=== PATIENT | male | born 1960 | race African-American/Black ===

== ENCOUNTER 2020-02-02 08:14 | Inpatient (IN) ==
[2020-02-02] MEDS ORDERED: AZITHROMYCIN INJ 500 MG in SODIUM CHLORIDE 0.9% 250 ML IV STA (08:34)
[2020-02-02] MEDS ORDERED: SODIUM CHLORIDE 0.9% 500 ML IV STA (08:34)
[2020-02-02] MEDS ORDERED: ACETAMINOPHEN 500 MG TABLET PO STA (08:37)
[2020-02-02 09:21] LABS: Basophils % 0.2 % (0.0-0.8); Hematocrit 49.7 VOL% (42.0-52.0); Immature Granulocytes % 0.4 %; Immature Granulocytes Absolute 0.02 #; Lymphocytes # 1.4 10*3/uL (1.4-4.0); Lymphocytes % 26.8 % (21.2-54.2); Mean Corpuscular HGB Conc 32.2 GM/DL (32-36); Mean Corpuscular Volume 86.3 FL (87-102); Mean Platelet Volume 10.5 FL (9.6-12.0); Monocytes % 3.5 % (1.7-12.7); Neutrophils % 69.1 % (38.7-73.9); Platelet Count 218 T/CUMM (130-400); Red Blood Count 5.76 MC/CUMM (3.8-5.5); Red Cell Distribution Width 14.1 % (9.3-17.3); White Blood Count 5.2 T/CUMM (4-12)
[2020-02-02 09:34] LABS: PT Patient Result 10.9 SECS (9.8-11.9); Partial Thromboplastin Time 37.5 SECS (23.9-33.8)
[2020-02-02 09:42] LABS: Bilirubin,Total 0.5 MG/DL (0.2-1.0); Osmolality,Calculated 267.4 MOS/KG (273-304); Total Protein 7.5 G/DL (6.4-8.3)
[2020-02-02] MEDS ORDERED: DEXTROSE 50% 25 GM/50 ML VIAL IV PRN (11:06)
[2020-02-02] MEDS ORDERED: GLUCAGON 1 MG VIAL IM PRN (11:06)
[2020-02-02] MEDS ORDERED: ONDANSETRON 4 MG/2 ML VIAL IV PRN (11:06)
[2020-02-02] MEDS: DEXAMETHASONE 4 MG TABLET PO SCH (16:51)
[2020-02-02] MEDS: ACETAMINOPHEN 325 MG TABLET PO PRN ×2 (16:52→21:26)
[2020-02-02] MEDS ORDERED: REMDESIVIR 200 MG in SODIUM CHLORIDE 0.9% 210 ML IV ONE (17:00)
[2020-02-02 18:46] LABS: Apearance,Urine CLEAR (Clear); Bilirubin,Urine Negative (Negative); Blood, Urine Negative (Negative); Glucose,Urine (UA) Negative (Negative); Ketones,Urine Negative (Negative); Mucus,Urine Occasional /LPF (Occasional); Nitrite,Urine Negative (Negative); Protein,Urine 100 MG/DL; Squamous Epithelial Cell,Urine Occasional /HPF (0-10); Urine Color Yellow (Yellow)
[2020-02-02] MEDS: ENOXAPARIN 40 MG/0.4 ML SYRINGE SUBCUT SCH (21:25)
[2020-02-03] MEDS: ALBUTEROL INHALER 18 GM INH SCH ×4 (01:33→20:03)
[2020-02-03 06:29] LABS: Hematocrit 46.9 VOL% (42.0-52.0); Hemoglobin 14.9 GM/DL (14.0-18.0); Immature Granulocytes % 0.3 %; Immature Granulocytes Absolute 0.01 #; Lymphocytes # 1.3 10*3/uL (1.4-4.0); Lymphocytes % 33.2 % (21.2-54.2); Mean Corpuscular HGB Conc 31.8 GM/DL (32-36); Mean Platelet Volume 10.4 FL (9.6-12.0); Monocytes % 4.7 % (1.7-12.7); Neutrophils % 61.8 % (38.7-73.9); Platelet Count 222 T/CUMM (130-400); Red Blood Count 5.39 MC/CUMM (3.8-5.5); Red Cell Distribution Width 14.5 % (9.3-17.3); White Blood Count 3.9 T/CUMM (4-12)
[2020-02-03 06:49] LABS: Hypochromasia 1+
[2020-02-03 06:50] LABS: Microcytosis Slight; Platelet Estimate Normal
[2020-02-03 07:16] LABS: Albumin 2.5 G/DL (3.4-5.0); Bilirubin,Total 1.2 MG/DL (0.2-1.0); Calcium 8.3 MG/DL (8.5-10.1); Osmolality,Calculated 274.1 MOS/KG (273-304); Risk Ratio 4.74; Thyroid Stimulating Hormone 0.54 uIU/ml (0.358-3.74); Total Protein 7.3 G/DL (6.4-8.3); VLDL CHOLESTEROL 23.8 MG/DL
[2020-02-03 07:26] LABS: Ferritin 4585.9 ng/ml (26-388)
[2020-02-03] MEDS: DEXAMETHASONE 4 MG TABLET PO SCH (08:54)
[2020-02-03] MEDS: PANTOPRAZOLE 40 MG TABLET PO SCH (08:54)
[2020-02-03] MEDS: ATORVASTATIN 40 MG TABLET PO SCH (08:54)
[2020-02-03] MEDS: lisinopriL 10 MG TABLET PO SCH (08:54)
[2020-02-03] MEDS: ZINC GLUCONATE 50 MG TABLET PO SCH (08:54)
[2020-02-03] MEDS: MONTELUKAST 10 MG TABLET PO SCH (08:54)
[2020-02-03] MEDS: ENOXAPARIN 40 MG/0.4 ML SYRINGE SUBCUT SCH ×2 (08:56→23:14)
[2020-02-03] MEDS ORDERED: GLUCAGON 1 MG VIAL IM PRN (11:44)
[2020-02-03] MEDS ORDERED: DEXTROSE 50% 25 GM/50 ML VIAL IV PRN (11:44)
[2020-02-03] MEDS: INSULIN LISPRO 100 UNIT/ML SUBCUT SCH ×2 (16:05→22:33)
[2020-02-03] MEDS: REMDESIVIR 100 MG in SODIUM CHLORIDE 0.9% 230 ML IV SCH (23:15)
[2020-02-04] MEDS: ALBUTEROL INHALER 18 GM INH SCH ×4 (00:16→18:14)
[2020-02-04 06:15] LABS: Hematocrit 44.9 VOL% (42.0-52.0); Hemoglobin 14.3 GM/DL (14.0-18.0); Immature Granulocytes % 0.3 %; Immature Granulocytes Absolute 0.02 #; Lymphocytes # 1.5 10*3/uL (1.4-4.0); Lymphocytes % 25.2 % (21.2-54.2); Mean Corpuscular HGB Conc 31.8 GM/DL (32-36); Mean Corpuscular Volume 86.7 FL (87-102); Mean Platelet Volume 10.1 FL (9.6-12.0); Monocytes % 7.4 % (1.7-12.7); Neutrophils % 67.1 % (38.7-73.9); Platelet Count 245 T/CUMM (130-400); Red Blood Count 5.18 MC/CUMM (3.8-5.5); Red Cell Distribution Width 14.3 % (9.3-17.3); White Blood Count 6.1 T/CUMM (4-12)
[2020-02-04 06:38] LABS: Band Neutrophils 2 % (0-10); Lymphocytes 20 % (20-55); Segmented Neutrophils 68 % (50-85); Total Cells Counted 100
[2020-02-04 06:39] LABS: Albumin 2.6 G/DL (3.4-5.0); Atypical Lymphocytes Few; Bilirubin,Total 0.7 MG/DL (0.2-1.0); Calcium 8.3 MG/DL (8.5-10.1); Hypochromasia 1+; Microcytosis Slight; Total Protein 7.3 G/DL (6.4-8.3)
[2020-02-04] MEDS: INSULIN LISPRO 100 UNIT/ML SUBCUT SCH ×4 (07:35→22:09)
[2020-02-04 08:20] LABS: Ferritin 4105.6 ng/ml (26-388)
[2020-02-04] MEDS: ZINC GLUCONATE 50 MG TABLET PO SCH (08:21)
[2020-02-04] MEDS: MONTELUKAST 10 MG TABLET PO SCH (08:21)
[2020-02-04] MEDS: lisinopriL 10 MG TABLET PO SCH (08:21)
[2020-02-04] MEDS: ATORVASTATIN 40 MG TABLET PO SCH (08:21)
[2020-02-04] MEDS: DEXAMETHASONE 4 MG TABLET PO SCH (08:22)
[2020-02-04] MEDS: ENOXAPARIN 40 MG/0.4 ML SYRINGE SUBCUT SCH ×2 (08:22→22:09)
[2020-02-04] MEDS: PANTOPRAZOLE 40 MG TABLET PO SCH (08:22)
[2020-02-04] MEDS: REMDESIVIR 100 MG in SODIUM CHLORIDE 0.9% 230 ML IV SCH (22:09)
[2020-02-05] MEDS: ALBUTEROL INHALER 18 GM INH SCH ×4 (01:10→18:18)
[2020-02-05 07:13] LABS: Albumin 2.5 G/DL (3.4-5.0); Bilirubin,Total 0.6 MG/DL (0.2-1.0); Calcium 8.5 MG/DL (8.5-10.1); Osmolality,Calculated 280.5 MOS/KG (273-304); Total Protein 7.1 G/DL (6.4-8.3)
[2020-02-05 07:43] LABS: Basophils % 0.1 % (0.0-0.8); Hematocrit 45.9 VOL% (42.0-52.0); Hemoglobin 14.5 GM/DL (14.0-18.0); Immature Granulocytes % 0.4 %; Immature Granulocytes Absolute 0.04 #; Lymphocytes # 2.4 10*3/uL (1.4-4.0); Lymphocytes % 25.3 % (21.2-54.2); Mean Corpuscular HGB Conc 31.6 GM/DL (32-36); Mean Corpuscular Volume 87.3 FL (87-102); Mean Platelet Volume 10.3 FL (9.6-12.0); Monocytes % 7.6 % (1.7-12.7); Neutrophils % 66.6 % (38.7-73.9); Platelet Count 302 T/CUMM (130-400); Red Blood Count 5.26 MC/CUMM (3.8-5.5); Red Cell Distribution Width 14.4 % (9.3-17.3); White Blood Count 9.6 T/CUMM (4-12)
[2020-02-05] MEDS: INSULIN LISPRO 100 UNIT/ML SUBCUT SCH ×4 (07:45→20:58)
[2020-02-05 08:18] LABS: Band Neutrophils 2 % (0-10); Lymphocytes 19 % (20-55); Segmented Neutrophils 74 % (50-85); Total Cells Counted 100
[2020-02-05 08:19] LABS: Hypochromasia 1+
[2020-02-05 08:20] LABS: Microcytosis 1+; Platelet Estimate Normal
[2020-02-05] MEDS: ENOXAPARIN 40 MG/0.4 ML SYRINGE SUBCUT SCH ×2 (09:31→20:57)
[2020-02-05] MEDS: MONTELUKAST 10 MG TABLET PO SCH (09:31)
[2020-02-05] MEDS: ATORVASTATIN 40 MG TABLET PO SCH (09:31)
[2020-02-05] MEDS: PANTOPRAZOLE 40 MG TABLET PO SCH (09:31)
[2020-02-05] MEDS: DEXAMETHASONE 4 MG TABLET PO SCH (09:31)
[2020-02-05] MEDS: lisinopriL 10 MG TABLET PO SCH (09:31)
[2020-02-05] MEDS: ZINC GLUCONATE 50 MG TABLET PO SCH (09:31)
[2020-02-05] MEDS: REMDESIVIR 100 MG in SODIUM CHLORIDE 0.9% 230 ML IV SCH (20:57)
[2020-02-06] MEDS: ALBUTEROL INHALER 18 GM INH SCH ×4 (01:30→18:03)
[2020-02-06 05:55] LABS: Basophils % 0.1 % (0.0-0.8); Eosinophils % 0.1 % (0.00-10.9); Hemoglobin 15.1 GM/DL (14.0-18.0); Immature Granulocytes % 0.9 %; Immature Granulocytes Absolute 0.09 #; Lymphocytes # 2.7 10*3/uL (1.4-4.0); Lymphocytes % 25.1 % (21.2-54.2); Mean Corpuscular HGB Conc 32.1 GM/DL (32-36); Mean Corpuscular Volume 86.4 FL (87-102); Mean Platelet Volume 10.1 FL (9.6-12.0); Monocytes % 5.7 % (1.7-12.7); Neutrophils % 68.1 % (38.7-73.9); Platelet Count 355 T/CUMM (130-400); Red Blood Count 5.44 MC/CUMM (3.8-5.5); Red Cell Distribution Width 14.1 % (9.3-17.3); White Blood Count 10.5 T/CUMM (4-12)
[2020-02-06 06:27] LABS: Calcium 8.4 MG/DL (8.5-10.1); Osmolality,Calculated 278.7 MOS/KG (273-304)
[2020-02-06 06:37] LABS: Atypical Lymphocytes Few; Lymphocytes 26 % (20-55); Segmented Neutrophils 66 % (50-85); Total Cells Counted 100
[2020-02-06 06:38] LABS: Hypochromasia 1+; Microcytosis 1+; Platelet Estimate Normal
[2020-02-06] MEDS: DEXAMETHASONE 4 MG TABLET PO SCH (09:26)
[2020-02-06] MEDS: MONTELUKAST 10 MG TABLET PO SCH (09:27)
[2020-02-06] MEDS: lisinopriL 10 MG TABLET PO SCH (09:27)
[2020-02-06] MEDS: INSULIN LISPRO 100 UNIT/ML SUBCUT SCH ×4 (09:27→21:14)
[2020-02-06] MEDS: ATORVASTATIN 40 MG TABLET PO SCH (09:27)
[2020-02-06] MEDS: ZINC GLUCONATE 50 MG TABLET PO SCH (09:27)
[2020-02-06] MEDS: PANTOPRAZOLE 40 MG TABLET PO SCH (09:27)
[2020-02-06] MEDS: ENOXAPARIN 40 MG/0.4 ML SYRINGE SUBCUT SCH ×2 (09:27→21:13)
[2020-02-06] MEDS: REMDESIVIR 100 MG in SODIUM CHLORIDE 0.9% 230 ML IV SCH (21:14)
[2020-02-07] MEDS: ALBUTEROL INHALER 18 GM INH SCH ×4 (00:54→18:32)
[2020-02-07 05:21] LABS: Basophils % 0.2 % (0.0-0.8); Eosinophils % 0.2 % (0.00-10.9); Hematocrit 47.8 VOL% (42.0-52.0); Hemoglobin 15.6 GM/DL (14.0-18.0); Immature Granulocytes % 1.2 %; Immature Granulocytes Absolute 0.17 #; Lymphocytes # 3.1 10*3/uL (1.4-4.0); Lymphocytes % 22.5 % (21.2-54.2); Mean Corpuscular HGB Conc 32.6 GM/DL (32-36); Mean Corpuscular Volume 85.5 FL (87-102); Mean Platelet Volume 9.9 FL (9.6-12.0); Monocytes % 4.3 % (1.7-12.7); Neutrophils % 71.6 % (38.7-73.9); Platelet Count 361 T/CUMM (130-400); Red Blood Count 5.59 MC/CUMM (3.8-5.5); Red Cell Distribution Width 13.9 % (9.3-17.3); White Blood Count 13.7 T/CUMM (4-12)
[2020-02-07 05:34] LABS: Calcium 8.2 MG/DL (8.5-10.1); Osmolality,Calculated 273.8 MOS/KG (273-304)
[2020-02-07 05:35] LABS: Ferritin 1702.6 ng/ml (26-388)
[2020-02-07 06:09] LABS: Anisocytosis 1+; Lymphocytes 23 % (20-55); Platelet Estimate Normal; Segmented Neutrophils 72 % (50-85); Total Cells Counted 100
[2020-02-07] MEDS: INSULIN LISPRO 100 UNIT/ML SUBCUT SCH ×4 (09:26→20:08)
[2020-02-07] MEDS: DEXAMETHASONE 4 MG TABLET PO SCH (09:27)
[2020-02-07] MEDS: ENOXAPARIN 40 MG/0.4 ML SYRINGE SUBCUT SCH ×2 (09:27→20:08)
[2020-02-07] MEDS: PANTOPRAZOLE 40 MG TABLET PO SCH (09:28)
[2020-02-07] MEDS: ZINC GLUCONATE 50 MG TABLET PO SCH (09:28)
[2020-02-07] MEDS: ATORVASTATIN 40 MG TABLET PO SCH (09:28)
[2020-02-07] MEDS: lisinopriL 10 MG TABLET PO SCH (09:28)
[2020-02-07] MEDS: MONTELUKAST 10 MG TABLET PO SCH (09:28)
[2020-02-07] MEDS: ACETAMINOPHEN 325 MG TABLET PO PRN (20:09)
[2020-02-08] MEDS: ALBUTEROL INHALER 18 GM INH SCH ×4 (00:33→18:03)
[2020-02-08 05:45] LABS: Basophils % 0.2 % (0.0-0.8); Eosinophils # 0.1 10*3/uL (0.0-0.87); Eosinophils % 0.4 % (0.00-10.9); Hematocrit 51.3 VOL% (42.0-52.0); Hemoglobin 16.4 GM/DL (14.0-18.0); Immature Granulocytes % 1.5 %; Immature Granulocytes Absolute 0.21 #; Lymphocytes # 2.2 10*3/uL (1.4-4.0); Lymphocytes % 15.9 % (21.2-54.2); Mean Corpuscular Volume 86.9 FL (87-102); Mean Platelet Volume 9.7 FL (9.6-12.0); Monocytes % 4.6 % (1.7-12.7); Neutrophils % 77.4 % (38.7-73.9); Platelet Count 406 T/CUMM (130-400); Red Cell Distribution Width 13.9 % (9.3-17.3); White Blood Count 13.6 T/CUMM (4-12)
[2020-02-08 06:00] LABS: Calcium 8.8 MG/DL (8.5-10.1); Osmolality,Calculated 271.1 MOS/KG (273-304)
[2020-02-08 06:06] LABS: Ferritin 1547.2 ng/ml (26-388)
[2020-02-08] MEDS: INSULIN LISPRO 100 UNIT/ML SUBCUT SCH ×4 (08:29→20:57)
[2020-02-08] MEDS: DEXAMETHASONE 4 MG TABLET PO SCH (08:30)
[2020-02-08] MEDS: ATORVASTATIN 40 MG TABLET PO SCH (08:31)
[2020-02-08] MEDS: MONTELUKAST 10 MG TABLET PO SCH (08:31)
[2020-02-08] MEDS: ZINC GLUCONATE 50 MG TABLET PO SCH (08:31)
[2020-02-08] MEDS: PANTOPRAZOLE 40 MG TABLET PO SCH (08:31)
[2020-02-08] MEDS: lisinopriL 10 MG TABLET PO SCH (08:31)
[2020-02-08] MEDS: ENOXAPARIN 40 MG/0.4 ML SYRINGE SUBCUT SCH ×2 (08:32→20:56)
[2020-02-08] MEDS: NEOMYCIN/POLYMYXIN/BACITRACIN OINT 0.9 GM PACK TOP PRN (13:38)
[2020-02-09] MEDS: ALBUTEROL INHALER 18 GM INH SCH ×4 (01:10→21:45)
[2020-02-09 06:12] LABS: Basophils % 0.2 % (0.0-0.8); Eosinophils # 0.2 10*3/uL (0.0-0.87); Eosinophils % 1.5 % (0.00-10.9); Hematocrit 49.3 VOL% (42.0-52.0); Immature Granulocytes Absolute 0.12 #; Lymphocytes # 2.2 10*3/uL (1.4-4.0); Lymphocytes % 18.5 % (21.2-54.2); Mean Corpuscular HGB Conc 32.5 GM/DL (32-36); Mean Corpuscular Volume 85.3 FL (87-102); Mean Platelet Volume 9.7 FL (9.6-12.0); Neutrophils % 72.8 % (38.7-73.9); Platelet Count 460 T/CUMM (130-400); Red Blood Count 5.78 MC/CUMM (3.8-5.5)
[2020-02-09 06:40] LABS: Calcium 8.7 MG/DL (8.5-10.1); Ferritin 1374.7 ng/ml (26-388); Osmolality,Calculated 268.4 MOS/KG (273-304)
[2020-02-09] MEDS: ZINC GLUCONATE 50 MG TABLET PO SCH (08:44)
[2020-02-09] MEDS: ATORVASTATIN 40 MG TABLET PO SCH (08:44)
[2020-02-09] MEDS: lisinopriL 10 MG TABLET PO SCH (08:45)
[2020-02-09] MEDS: DEXAMETHASONE 4 MG TABLET PO SCH (08:45)
[2020-02-09] MEDS: PANTOPRAZOLE 40 MG TABLET PO SCH (08:45)
[2020-02-09] MEDS: MONTELUKAST 10 MG TABLET PO SCH (08:45)
[2020-02-09] MEDS: ENOXAPARIN 40 MG/0.4 ML SYRINGE SUBCUT SCH ×2 (08:46→21:45)
[2020-02-09] MEDS: INSULIN LISPRO 100 UNIT/ML SUBCUT SCH ×5 (08:46→22:57)
[2020-02-10] MEDS: ALBUTEROL INHALER 18 GM INH SCH ×4 (00:30→18:26)
[2020-02-10 06:11] LABS: Basophils % 0.2 % (0.0-0.8); Eosinophils # 0.1 10*3/uL (0.0-0.87); Hematocrit 46.1 VOL% (42.0-52.0); Immature Granulocytes % 0.8 %; Lymphocytes # 1.8 10*3/uL (1.4-4.0); Lymphocytes % 14.3 % (21.2-54.2); Mean Corpuscular HGB Conc 32.5 GM/DL (32-36); Mean Corpuscular Volume 84.9 FL (87-102); Mean Platelet Volume 9.7 FL (9.6-12.0); Monocytes % 7.7 % (1.7-12.7); Platelet Count 464 T/CUMM (130-400); Red Blood Count 5.43 MC/CUMM (3.8-5.5); Red Cell Distribution Width 13.9 % (9.3-17.3); White Blood Count 12.9 T/CUMM (4-12)
[2020-02-10 06:33] LABS: Calcium 8.6 MG/DL (8.5-10.1); Ferritin 1276.3 ng/ml (26-388); Osmolality,Calculated 273.4 MOS/KG (273-304)
[2020-02-10] MEDS: INSULIN LISPRO 100 UNIT/ML SUBCUT SCH ×4 (08:05→21:32)
[2020-02-10] MEDS: ENOXAPARIN 40 MG/0.4 ML SYRINGE SUBCUT SCH ×2 (08:50→21:32)
[2020-02-10] MEDS: ATORVASTATIN 40 MG TABLET PO SCH (08:51)
[2020-02-10] MEDS: ZINC GLUCONATE 50 MG TABLET PO SCH (08:51)
[2020-02-10] MEDS: DEXAMETHASONE 4 MG TABLET PO SCH (08:51)
[2020-02-10] MEDS: lisinopriL 10 MG TABLET PO SCH (08:51)
[2020-02-10] MEDS: MONTELUKAST 10 MG TABLET PO SCH (08:51)
[2020-02-10] MEDS: ACETAMINOPHEN 325 MG TABLET PO PRN (09:01)
[2020-02-11] MEDS: ALBUTEROL INHALER 18 GM INH SCH ×4 (00:23→18:10)
[2020-02-11 05:50] LABS: Basophils % 0.2 % (0.0-0.8); Eosinophils # 0.2 10*3/uL (0.0-0.87); Eosinophils % 1.3 % (0.00-10.9); Hematocrit 46.3 VOL% (42.0-52.0); Immature Granulocytes % 0.6 %; Immature Granulocytes Absolute 0.07 #; Lymphocytes # 2.2 10*3/uL (1.4-4.0); Lymphocytes % 17.8 % (21.2-54.2); Mean Corpuscular HGB Conc 32.4 GM/DL (32-36); Mean Corpuscular Volume 85.1 FL (87-102); Mean Platelet Volume 9.9 FL (9.6-12.0); Monocytes % 6.4 % (1.7-12.7); Neutrophils % 73.7 % (38.7-73.9); Platelet Count 518 T/CUMM (130-400); Red Blood Count 5.44 MC/CUMM (3.8-5.5); Red Cell Distribution Width 13.9 % (9.3-17.3); White Blood Count 12.2 T/CUMM (4-12)
[2020-02-11 06:24] LABS: Calcium 8.4 MG/DL (8.5-10.1); Osmolality,Calculated 270.4 MOS/KG (273-304)
[2020-02-11] MEDS: INSULIN LISPRO 100 UNIT/ML SUBCUT SCH ×4 (07:17→20:39)
[2020-02-11] MEDS: ENOXAPARIN 40 MG/0.4 ML SYRINGE SUBCUT SCH ×2 (09:03→20:39)
[2020-02-11] MEDS: ATORVASTATIN 40 MG TABLET PO SCH (09:03)
[2020-02-11] MEDS: ZINC GLUCONATE 50 MG TABLET PO SCH (09:04)
[2020-02-11] MEDS: MONTELUKAST 10 MG TABLET PO SCH (09:04)
[2020-02-11] MEDS: lisinopriL 10 MG TABLET PO SCH (09:04)
[2020-02-11] MEDS: DEXAMETHASONE 4 MG TABLET PO SCH (09:04)
[2020-02-11] MEDS: NEOMYCIN/POLYMYXIN/BACITRACIN OINT 0.9 GM PACK TOP PRN (22:23)
[2020-02-12] MEDS: ALBUTEROL INHALER 18 GM INH SCH ×4 (00:05→18:35)
[2020-02-12 06:28] LABS: Basophils % 0.2 % (0.0-0.8); Eosinophils # 0.2 10*3/uL (0.0-0.87); Eosinophils % 1.9 % (0.00-10.9); Hematocrit 46.6 VOL% (42.0-52.0); Hemoglobin 14.8 GM/DL (14.0-18.0); Immature Granulocytes % 0.5 %; Immature Granulocytes Absolute 0.06 #; Lymphocytes # 2.5 10*3/uL (1.4-4.0); Lymphocytes % 22.3 % (21.2-54.2); Mean Corpuscular HGB Conc 31.8 GM/DL (32-36); Mean Corpuscular Volume 87.8 FL (87-102); Mean Platelet Volume 10.3 FL (9.6-12.0); Monocytes % 7.7 % (1.7-12.7); Neutrophils % 67.4 % (38.7-73.9); Platelet Count 462 T/CUMM (130-400); Red Blood Count 5.31 MC/CUMM (3.8-5.5); Red Cell Distribution Width 13.8 % (9.3-17.3); White Blood Count 11.3 T/CUMM (4-12)
[2020-02-12 06:49] LABS: Calcium 8.6 MG/DL (8.5-10.1); Osmolality,Calculated 269.2 MOS/KG (273-304)
[2020-02-12 06:55] LABS: Ferritin 982.2 ng/ml (26-388)
[2020-02-12] MEDS: ATORVASTATIN 40 MG TABLET PO SCH (09:46)
[2020-02-12] MEDS: DEXAMETHASONE 4 MG TABLET PO SCH (09:46)
[2020-02-12] MEDS: lisinopriL 10 MG TABLET PO SCH (09:46)
[2020-02-12] MEDS: ZINC GLUCONATE 50 MG TABLET PO SCH (09:47)
[2020-02-12] MEDS: MONTELUKAST 10 MG TABLET PO SCH (09:47)
[2020-02-12] MEDS: ENOXAPARIN 40 MG/0.4 ML SYRINGE SUBCUT SCH ×2 (09:47→20:50)
[2020-02-12] MEDS: INSULIN LISPRO 100 UNIT/ML SUBCUT SCH ×4 (09:48→20:50)
[2020-02-12] MEDS: NEOMYCIN/POLYMYXIN/BACITRACIN OINT 0.9 GM PACK TOP PRN (21:08)
[2020-02-13] MEDS: ALBUTEROL INHALER 18 GM INH SCH ×4 (01:56→18:00)
[2020-02-13 07:10] LABS: Basophils % 0.3 % (0.0-0.8); Eosinophils # 0.3 10*3/uL (0.0-0.87); Hematocrit 45.3 VOL% (42.0-52.0); Hemoglobin 14.3 GM/DL (14.0-18.0); Immature Granulocytes % 0.6 %; Immature Granulocytes Absolute 0.07 #; Lymphocytes # 2.9 10*3/uL (1.4-4.0); Lymphocytes % 22.7 % (21.2-54.2); Mean Corpuscular HGB Conc 31.6 GM/DL (32-36); Mean Corpuscular Volume 87.8 FL (87-102); Mean Platelet Volume 10.3 FL (9.6-12.0); Monocytes % 8.1 % (1.7-12.7); Neutrophils % 66.3 % (38.7-73.9); Platelet Count 487 T/CUMM (130-400); Red Blood Count 5.16 MC/CUMM (3.8-5.5); Red Cell Distribution Width 13.7 % (9.3-17.3); White Blood Count 12.7 T/CUMM (4-12)
[2020-02-13 07:29] LABS: Calcium 9.2 MG/DL (8.5-10.1); Osmolality,Calculated 269.2 MOS/KG (273-304)
[2020-02-13] MEDS: ENOXAPARIN 40 MG/0.4 ML SYRINGE SUBCUT SCH ×2 (08:34→21:27)
[2020-02-13] MEDS: DEXAMETHASONE 4 MG TABLET PO SCH (08:35)
[2020-02-13] MEDS: lisinopriL 10 MG TABLET PO SCH (08:35)
[2020-02-13] MEDS: ZINC GLUCONATE 50 MG TABLET PO SCH (08:35)
[2020-02-13] MEDS: MONTELUKAST 10 MG TABLET PO SCH (08:35)
[2020-02-13] MEDS: ATORVASTATIN 40 MG TABLET PO SCH (08:35)
[2020-02-13] MEDS: INSULIN LISPRO 100 UNIT/ML SUBCUT SCH ×4 (08:35→22:36)
[2020-02-13] MEDS: CLORAZEPATE 3.75 MG TABLET PO PRN (21:27)
[2020-02-14] MEDS: ALBUTEROL INHALER 18 GM INH SCH ×4 (01:57→18:10)
[2020-02-14 06:27] LABS: Basophils % 0.2 % (0.0-0.8); Eosinophils # 0.1 10*3/uL (0.0-0.87); Hematocrit 44.6 VOL% (42.0-52.0); Hemoglobin 14.3 GM/DL (14.0-18.0); Immature Granulocytes % 0.5 %; Immature Granulocytes Absolute 0.06 #; Lymphocytes # 3.2 10*3/uL (1.4-4.0); Lymphocytes % 25.2 % (21.2-54.2); Mean Corpuscular HGB Conc 32.1 GM/DL (32-36); Mean Corpuscular Volume 86.3 FL (87-102); Monocytes % 7.8 % (1.7-12.7); Neutrophils % 65.3 % (38.7-73.9); Platelet Count 474 T/CUMM (130-400); Red Blood Count 5.17 MC/CUMM (3.8-5.5); Red Cell Distribution Width 13.5 % (9.3-17.3); White Blood Count 12.6 T/CUMM (4-12)
[2020-02-14 06:54] LABS: Osmolality,Calculated 268.4 MOS/KG (273-304)
[2020-02-14 07:13] LABS: Ferritin 966.8 ng/ml (26-388)
[2020-02-14] MEDS: INSULIN LISPRO 100 UNIT/ML SUBCUT SCH ×4 (08:35→21:12)
[2020-02-14] MEDS: MONTELUKAST 10 MG TABLET PO SCH (08:36)
[2020-02-14] MEDS: lisinopriL 10 MG TABLET PO SCH (08:36)
[2020-02-14] MEDS: ZINC GLUCONATE 50 MG TABLET PO SCH (08:36)
[2020-02-14] MEDS: ENOXAPARIN 40 MG/0.4 ML SYRINGE SUBCUT SCH ×2 (08:36→21:12)
[2020-02-14] MEDS: DEXAMETHASONE 4 MG TABLET PO SCH (08:36)
[2020-02-14] MEDS: ATORVASTATIN 40 MG TABLET PO SCH (09:49)
[2020-02-14] MEDS: CLORAZEPATE 3.75 MG TABLET PO PRN (21:13)
[2020-02-15] MEDS: ALBUTEROL INHALER 18 GM INH SCH ×4 (00:32→19:18)
[2020-02-15 06:44] LABS: Basophils % 0.3 % (0.0-0.8); Eosinophils # 0.2 10*3/uL (0.0-0.87); Eosinophils % 1.7 % (0.00-10.9); Hematocrit 44.9 VOL% (42.0-52.0); Hemoglobin 14.3 GM/DL (14.0-18.0); Immature Granulocytes % 0.4 %; Immature Granulocytes Absolute 0.05 #; Lymphocytes # 3.3 10*3/uL (1.4-4.0); Lymphocytes % 26.2 % (21.2-54.2); Mean Corpuscular HGB Conc 31.8 GM/DL (32-36); Mean Corpuscular Volume 87.2 FL (87-102); Mean Platelet Volume 9.9 FL (9.6-12.0); Monocytes % 7.3 % (1.7-12.7); Neutrophils % 64.1 % (38.7-73.9); Platelet Count 449 T/CUMM (130-400); Red Blood Count 5.15 MC/CUMM (3.8-5.5); Red Cell Distribution Width 13.5 % (9.3-17.3); White Blood Count 12.6 T/CUMM (4-12)
[2020-02-15 07:09] LABS: Ferritin 925.2 ng/ml (26-388)
[2020-02-15] MEDS: INSULIN LISPRO 100 UNIT/ML SUBCUT SCH ×4 (10:04→20:00)
[2020-02-15] MEDS: lisinopriL 10 MG TABLET PO SCH (10:05)
[2020-02-15] MEDS: ATORVASTATIN 40 MG TABLET PO SCH (10:05)
[2020-02-15] MEDS: ENOXAPARIN 40 MG/0.4 ML SYRINGE SUBCUT SCH ×2 (10:05→20:01)
[2020-02-15] MEDS: DEXAMETHASONE 4 MG TABLET PO SCH (10:05)
[2020-02-15] MEDS: ZINC GLUCONATE 50 MG TABLET PO SCH (10:06)
[2020-02-15] MEDS: MONTELUKAST 10 MG TABLET PO SCH (10:06)
[2020-02-15] MEDS: CLORAZEPATE 3.75 MG TABLET PO PRN (23:18)
[2020-02-16] MEDS: ALBUTEROL INHALER 18 GM INH SCH ×4 (00:31→18:31)
[2020-02-16 06:52] LABS: Basophils # 0.1 10*3/uL (0.0-0.2); Basophils % 0.3 % (0.0-0.8); Eosinophils # 0.2 10*3/uL (0.0-0.87); Eosinophils % 1.7 % (0.00-10.9); Hematocrit 44.2 VOL% (42.0-52.0); Hemoglobin 13.9 GM/DL (14.0-18.0); Immature Granulocytes % 0.6 %; Immature Granulocytes Absolute 0.08 #; Lymphocytes # 3.6 10*3/uL (1.4-4.0); Lymphocytes % 25.1 % (21.2-54.2); Mean Corpuscular HGB Conc 31.4 GM/DL (32-36); Mean Corpuscular Volume 87.5 FL (87-102); Mean Platelet Volume 9.9 FL (9.6-12.0); Monocytes % 9.8 % (1.7-12.7); Neutrophils % 62.5 % (38.7-73.9); Platelet Count 451 T/CUMM (130-400); Red Blood Count 5.05 MC/CUMM (3.8-5.5); Red Cell Distribution Width 13.5 % (9.3-17.3); White Blood Count 14.4 T/CUMM (4-12)
[2020-02-16 07:22] LABS: Calcium 8.8 MG/DL (8.5-10.1); Osmolality,Calculated 273.1 MOS/KG (273-304)
[2020-02-16] MEDS: INSULIN LISPRO 100 UNIT/ML SUBCUT SCH ×4 (09:16→21:17)
[2020-02-16] MEDS: ENOXAPARIN 40 MG/0.4 ML SYRINGE SUBCUT SCH ×2 (09:17→21:18)
[2020-02-16] MEDS: DEXAMETHASONE 4 MG TABLET PO SCH (09:17)
[2020-02-16] MEDS: ATORVASTATIN 40 MG TABLET PO SCH (09:17)
[2020-02-16] MEDS: MONTELUKAST 10 MG TABLET PO SCH (09:17)
[2020-02-16] MEDS: lisinopriL 10 MG TABLET PO SCH (09:18)
[2020-02-16] MEDS: ZINC GLUCONATE 50 MG TABLET PO SCH (10:04)
[2020-02-17] MEDS: ALBUTEROL INHALER 18 GM INH SCH ×2 (00:27→08:47)
[2020-02-17 06:45] LABS: Basophils # 0.1 10*3/uL (0.0-0.2); Basophils % 0.3 % (0.0-0.8); Eosinophils # 0.2 10*3/uL (0.0-0.87); Eosinophils % 1.1 % (0.00-10.9); Hematocrit 43.5 VOL% (42.0-52.0); Hemoglobin 14.4 GM/DL (14.0-18.0); Immature Granulocytes % 0.4 %; Immature Granulocytes Absolute 0.07 #; Lymphocytes # 3.5 10*3/uL (1.4-4.0); Lymphocytes % 21.7 % (21.2-54.2); Mean Corpuscular HGB Conc 33.1 GM/DL (32-36); Mean Corpuscular Volume 84.8 FL (87-102); Mean Platelet Volume 10.3 FL (9.6-12.0); Neutrophils % 68.5 % (38.7-73.9); Platelet Count 431 T/CUMM (130-400); Red Blood Count 5.13 MC/CUMM (3.8-5.5); Red Cell Distribution Width 13.5 % (9.3-17.3); White Blood Count 16.3 T/CUMM (4-12)
[2020-02-17 06:55] LABS: Calcium 9.2 MG/DL (8.5-10.1); Osmolality,Calculated 270.2 MOS/KG (273-304)
[2020-02-17 07:29] VITALS: BP 108/74
[2020-02-17] MEDS: lisinopriL 10 MG TABLET PO SCH (08:46)
[2020-02-17] MEDS: ATORVASTATIN 40 MG TABLET PO SCH (08:46)
[2020-02-17] MEDS: MONTELUKAST 10 MG TABLET PO SCH (08:46)
[2020-02-17] MEDS: ENOXAPARIN 40 MG/0.4 ML SYRINGE SUBCUT SCH (08:46)
[2020-02-17] MEDS: ZINC GLUCONATE 50 MG TABLET PO SCH (08:46)
[2020-02-17] MEDS: INSULIN LISPRO 100 UNIT/ML SUBCUT SCH ×4 (08:47→22:26)
[2020-02-17] MEDS: DEXAMETHASONE 4 MG TABLET PO SCH (08:48)
[2020-02-17] MEDS: PIPERACILLIN/TAZOBACTAM 3,375 MG in SODIUM CHLORIDE 0.9% 100 ML IV SCH ×2 (11:00→19:24)
[2020-02-17] MEDS ORDERED: ALBUTEROL INHALER 18 GM INH PRN (11:15)
[2020-02-17] MEDS: CLORAZEPATE 3.75 MG TABLET PO PRN ×2 (12:33→20:10)
[2020-02-17] MEDS ORDERED: SODIUM CHLORIDE 0.9% 250 ML IV ONE (14:04)
[2020-02-17] MEDS: BACITRACIN OINT 0.9 GM PACK TOP SCH ×2 (14:37→20:10)
[2020-02-17] MEDS: ENOXAPARIN 120 MG/0.8 ML SYRINGE SUBCUT SCH (14:44)
[2020-02-17] MEDS: VANCOMYCIN INJ 1,750 MG in SODIUM CHLORIDE 0.9% 500 ML IV SCH (16:30)
[2020-02-18] MEDS: PIPERACILLIN/TAZOBACTAM 3,375 MG in SODIUM CHLORIDE 0.9% 100 ML IV SCH ×3 (01:49→18:17)
[2020-02-18] MEDS: ACETAMINOPHEN 325 MG TABLET PO PRN (03:00)
[2020-02-18] MEDS: VANCOMYCIN INJ 1,750 MG in SODIUM CHLORIDE 0.9% 500 ML IV SCH ×2 (04:52→16:30)
[2020-02-18 05:06] LABS: ABG Base Excess 2.6 MMOL/L (-2.5-2.5); ABG HCO3 26.4 MMOL/L (20-26); ABG Oxygen Saturation 86.1 % (95-100); ABG PCO2 39.2 MM HG (35-48); ABG PH 7.442 (7.35-7.45); ABG PO2 52.4 MM HG (80-95); ABG TCO2 23.1 MMOL/L (23-27)
[2020-02-18 07:55] LABS: Basophils # 0.1 10*3/uL (0.0-0.2); Basophils % 0.4 % (0.0-0.8); Eosinophils # 0.3 10*3/uL (0.0-0.87); Eosinophils % 2.3 % (0.00-10.9); Hematocrit 41.3 VOL% (42.0-52.0); Hemoglobin 13.4 GM/DL (14.0-18.0); Immature Granulocytes % 0.3 %; Immature Granulocytes Absolute 0.04 #; Lymphocytes # 3.1 10*3/uL (1.4-4.0); Mean Corpuscular HGB Conc 32.4 GM/DL (32-36); Mean Corpuscular Volume 86.2 FL (87-102); Mean Platelet Volume 9.4 FL (9.6-12.0); Monocytes % 8.9 % (1.7-12.7); Neutrophils % 63.1 % (38.7-73.9); Platelet Count 363 T/CUMM (130-400); Red Blood Count 4.79 MC/CUMM (3.8-5.5); Red Cell Distribution Width 13.4 % (9.3-17.3); White Blood Count 12.4 T/CUMM (4-12)
[2020-02-18] MEDS: CLORAZEPATE 3.75 MG TABLET PO PRN ×2 (08:00→16:40)
[2020-02-18] MEDS: ATORVASTATIN 40 MG TABLET PO SCH (08:00)
[2020-02-18] MEDS: DEXAMETHASONE 4 MG TABLET PO SCH (08:01)
[2020-02-18] MEDS: MONTELUKAST 10 MG TABLET PO SCH (08:01)
[2020-02-18] MEDS: ZINC GLUCONATE 50 MG TABLET PO SCH (08:01)
[2020-02-18] MEDS: BACITRACIN OINT 0.9 GM PACK TOP SCH ×2 (08:01→21:24)
[2020-02-18] MEDS: lisinopriL 10 MG TABLET PO SCH (08:02)
[2020-02-18] MEDS: INSULIN LISPRO 100 UNIT/ML SUBCUT SCH ×4 (08:02→21:31)
[2020-02-18 08:13] LABS: Calcium 8.9 MG/DL (8.5-10.1); Osmolality,Calculated 272.1 MOS/KG (273-304)
[2020-02-18] MEDS: ENOXAPARIN 120 MG/0.8 ML SYRINGE SUBCUT SCH ×2 (12:18)
[2020-02-18] MEDS ORDERED: FUROSEMIDE 40 MG/4 ML VIAL IV ONE (18:41)
[2020-02-19] MEDS: ENOXAPARIN 60 MG/0.6 ML SYRINGE SUBCUT SCH ×2 (00:30→12:33)
[2020-02-19] MEDS: PIPERACILLIN/TAZOBACTAM 3,375 MG in SODIUM CHLORIDE 0.9% 100 ML IV SCH ×2 (03:25→13:58)
[2020-02-19] MEDS: CLORAZEPATE 3.75 MG TABLET PO PRN ×2 (04:26→12:33)
[2020-02-19 04:41] LABS: Basophils # 0.1 10*3/uL (0.0-0.2); Basophils % 0.4 % (0.0-0.8); Eosinophils # 0.4 10*3/uL (0.0-0.87); Eosinophils % 3.1 % (0.00-10.9); Hematocrit 43.9 VOL% (42.0-52.0); Hemoglobin 14.3 GM/DL (14.0-18.0); Immature Granulocytes % 0.3 %; Immature Granulocytes Absolute 0.04 #; Lymphocytes # 3.1 10*3/uL (1.4-4.0); Lymphocytes % 23.8 % (21.2-54.2); Mean Corpuscular HGB Conc 32.6 GM/DL (32-36); Mean Corpuscular Volume 86.1 FL (87-102); Neutrophils % 63.4 % (38.7-73.9); Platelet Count 377 T/CUMM (130-400); Red Cell Distribution Width 13.3 % (9.3-17.3); White Blood Count 13.2 T/CUMM (4-12)
[2020-02-19] MEDS: VANCOMYCIN INJ 1,750 MG in SODIUM CHLORIDE 0.9% 500 ML IV SCH (04:52)
[2020-02-19 04:57] LABS: Calcium 9.3 MG/DL (8.5-10.1)
[2020-02-19 04:58] LABS: ABG Base Excess 1.9 MMOL/L (-2.5-2.5); ABG PCO2 40.8 MM HG (35-48); ABG PH 7.421 (7.35-7.45); ABG PO2 68.5 MM HG (80-95); ABG TCO2 22.7 MMOL/L (23-27); Allen Test Positive; Pt O2 Delivery Device BIPAP
[2020-02-19] MEDS: ZINC GLUCONATE 50 MG TABLET PO SCH (08:43)
[2020-02-19] MEDS: BACITRACIN OINT 0.9 GM PACK TOP SCH (08:43)
[2020-02-19] MEDS: MONTELUKAST 10 MG TABLET PO SCH (08:43)
[2020-02-19] MEDS: ATORVASTATIN 40 MG TABLET PO SCH (08:43)
[2020-02-19] MEDS: lisinopriL 10 MG TABLET PO SCH (08:46)
[2020-02-19] MEDS: INSULIN LISPRO 100 UNIT/ML SUBCUT SCH (08:46)
[2020-02-19] MEDS ORDERED: FAMOTIDINE 20 MG TABLET PO SCH (09:00)
[2020-02-19] MEDS ORDERED: DEXAMETHASONE 4 MG TABLET PO SCH (09:00)
[2020-02-19] MEDS ORDERED: CETIRIZINE 10 MG TABLET PO SCH (09:00)
== END 2020-02-19 15:20 | DRG 177 ==
LOC: N.ED 08:14 → SUATTDRO 11:04 → N.EDINP 11:04 → N.2E 12:56 → N.CC 02-17 05:55
PROVIDERS: ADMIT Emergency Medicine; ATTEND Internal Medicine